=== PATIENT | female | born 1965 | race Caucasian/White ===

== ENCOUNTER → 2019-06-23 | Outpatient (REF) | payer BC | LOC: M SFHCLERA 19:32 | PROVIDERS: ATTEND Nurse Practitioner Family | DX: J02.9 Acute pharyngitis, unspecified (principal) ==

== ENCOUNTER → 2021-07-07 | Outpatient (CLI) | payer BC ==
[~2021-07-07] MED LIST: CEPH500C PO; D31000TA2 PO; ESTR62CR PV; FLAX1CAP5 PO; LEVO25TA5 PO; QC F0.52 PO; RA T500C2 PO; VITA-243 PO; ZINC1TAB2 PO
== END ==
LOC: M LABSMTC 10:56
PROVIDERS: ATTEND Anesthesiology
DX: Z01.818 Encounter for other preprocedural examination (principal); Z11.52 Encounter for screening for COVID-19

== ENCOUNTER 2021-07-12 06:12 | Day surgery (SDC) | payer BC ==
[~2021-07-12] VITALS: Ht 149.9 cm; Wt 77.1 kg
[~2021-07-12 06:12] MED LIST changes: +LIDOCAINE 1% MDV 20ML VIAL SQ PRN; +LR 1,000 ML IV ONE; +ceFAZolin SOD 2 GM in IV 1 EA IV ONE
[2021-07-12] MEDS ORDERED: GENTAMICIN SULF 80MG/2ML VIAL As Ordered ONE (07:19)
[2021-07-12] MEDS ORDERED: BUPIVACAINE LIPOSOME/PF 1.3% 20ML VIAL (13.3MG/ML)(EXPAREL)(C9290 PER1MG) As Ordered ONE (07:19)
[2021-07-12] MEDS ORDERED: fentaNYL 250 MCG/5 ML INJECTION (J3010) As Ordered ONE (07:27)
[2021-07-12] MEDS ORDERED: ROCURONIUM BROMIDE 50 MG/5 ML VIAL As Ordered ONE ×2 (07:27→08:59)
[2021-07-12] MEDS ORDERED: dexameTHASONE 4 MG/ML 1ML VIAL (J1100 PER 1MG) As Ordered ONE (07:27)
[2021-07-12] MEDS ORDERED: LIDOCAINE 2% 100MG/5ML SDV (FOR ANES.) As Ordered ONE (07:27)
[2021-07-12] MEDS ORDERED: MIDAZOLAM INJ 2MG/2ML VIAL (J2250 PER 1MG) As Ordered ONE (07:27)
[2021-07-12] MEDS ORDERED: propofoL 200 MG/20 ML VIAL As Ordered ONE (07:27)
[2021-07-12] MEDS ORDERED: SCOPOLAMINE 1MG TRANSDERMAL PATCH TOP ONE (07:30)
[2021-07-12] MEDS ORDERED: LIDOCAINE 1% MDV 20ML VIAL As Ordered ONE (07:34)
[2021-07-12] MEDS ORDERED: EPINEPHrine INJ 1 MG/ML 1ML AMP As Ordered ONE (07:34)
[2021-07-12] MEDS ORDERED: GLYCOPYRROLATE INJ 0.2 MG/ML 2 ML VIAL As Ordered ONE (08:22)
[2021-07-12] MEDS ORDERED: HEPARIN SOD (PORCINE) 5000UNITS/ML 1ML VIAL/SYRINGE As Ordered ONE (08:27)
[2021-07-12] MEDS ORDERED: ePHEDrine SULFATE 25 MG/5 ML(5MG/ML) SYRINGE As Ordered ONE (08:42)
[2021-07-12] MEDS ORDERED: HYDROmorphone HCL 2 MG/ML 1ML VIAL As Ordered ONE (09:05)
[2021-07-12] MEDS ORDERED: SUGAMMADEX SODIUM 500 MG/5 ML VIAL (BRIDION) As Ordered ONE (09:17)
[2021-07-12] MEDS ORDERED: ACETAMINOPHEN 1000MG 100ML IV BTL (OFIRMEV) (J0131 PER 10MG) As Ordered ONE (09:17)
[2021-07-12] MEDS ORDERED: SEVOFLURANE INHAL SOLN 250 ML BTL As Ordered ONE (09:34)
--- NOTE | 2021-07-12 11:45 | POST-OPPD ---
Postoperative Procedure Note Date Of Procedure: Jul 12, 2021 PREOPERATIVE DIAGNOSIS: Bilateral breast ptosis. Symptomatic lower abdominal scar POSTOPERATIVE DIAGNOSIS: same PROCEDURE: Bilateral mastopexy. Revision of lower abdominal scar. SURGEON: Dr Owens ANESTHESIA: General ESTIMATED BLOOD LOSS: 75 cc FINDINGS: Symptomatic wide scar with asymmetry SPECIMENS: Scar. 32 cx 6 cm, Right and left breast tissue. Liposuction fluid 600 cc. COMPLICATIONS: none REPLACED: none DRAINS: none POSTOPERATIVE CONDITION: stable SABINO OWENS DO Jul 12, 2021 11:45
--- NOTE | 2021-07-12 11:46 | ROOPDOC ---
[facility] Report Of Operation Report of Operation DATE OF PROCEDURE: 07/12/21 PREOPERATIVE DIAGNOSIS: Bilateral breast ptosis. Symptomatic lower abdominal scar POSTOPERATIVE DIAGNOSIS: same PROCEDURE: Bilateral mastopexy. Revision of lower abdominal scar. SURGEON: Dr Owens ANESTHESIA: General ESTIMATED BLOOD LOSS: 75 cc FINDINGS: Symptomatic wide scar with asymmetry SPECIMENS: Scar. 32 cx 6 cm, Right and left breast tissue. Liposuction fluid 600 cc. COMPLICATIONS: none REPLACED: none DRAINS: none POSTOPERATIVE CONDITION: stable DESCRIPTION OF PROCEDURE: DESCRIPTION OF PROCEDURE: This is a 56-year-old female who presents to our office complaining of loss of the volume of the upper pole of the breast and significant ptosis. Her measurements are from sternal notch to the nipple areolar complex 29 cm bilaterally. Her inframammary fold (IMF) is at 22 cm. Patient wishes to have a breast lift. She also has a wide, thin breast with a lot of laxity in her tissues. Bilateral Mastopexy is the appropriate choice of procedure. Risks, benefits, and alternatives were discussed with the patient in detail, and she is ready to proceed. Patient also has a old scar from previous abdominoplasty that she underwent years ago which was also followed by different operation and. Now that the scar is painful and symmetric. She would like to have it revised as well. Risk, benefits, and alternatives of the procedure for the scar revision were discussed with patient in details as well. The day of surgery, she was marked in the upright position. Preoperative antibiotics given. Informed consent obtained. She was brought into the operating room and placed in supine position. General anesthesia was induced. She was prepped and draped in the usual sterile fashion. We started our procedure with the scar revision portion. The area was outlined previously in upright position. The length of the scar is 32 centimeters in length and 6 cm in width. We used 10 blade scalpel to completely excise the sc ar hemostasis was obtained using electrocautery. We identified the areas of a contraction deeply in the subcutaneous tissue which was also attributed to the scar and there were removed. The area was irrigated with gentamicin irrigation. With reapproximated the scar with deep sutures of 0 Vicryl interrupted fashion. Followed closure was done with interrupted 3-0 Monocryl sutures followed by 3-0 Monocryl V-Loc suture. Good symmetry was achieved. Then will turned our attention to the second part of the procedure which is mastopexy. We started our procedure on the right side. Nipple areolar complex was outlined at 42 mm in diameter. Then a lollypop incision was designed, and incision was carried out, tissue was scored, and then dissection was done using el ectrocautery and PEAK cautery, along the central pedicle lift. This was how we designed our mastopexy. We undermined superiorly until the pocket was large enough to be able to bring the tissue superiorly, and then the lateral pillars were also freed up, and the central pedicle was identified with good perfusion to the nipple at all times. The skin was de-epithelialized, and the whole breast moved superiorly to its new location at 22 cm from the sternal notch. Pillars were then closed with 3-0 Monocryl sutures, and 0 Vicryl conforming sutures were used to support the breast. Excess tissue inferiorly was measured and resected, vertical limb is 7 cm. Nipple areolar complex sutured in with 3-0 and 4-0 Monocryl and a 5-0 plain gut running stitch. Then the left breast was done in a similar fashion. The 42 mm diameter nipple areolar complex was marked using a Oz Sonotek cutter, and an incision was carried out along the lollypop incision that was designed, and then a pocket was created superiorly and then central pedicle was freed up from the lateral pillars and then de-epithialized. Hemostasis obtained, and then the whole breast was moved superiorly to its new location. Exparel was infiltrated into the pectoralis muscle on both sides, 20 mL total, and then the left side pillars were closed with interrupted 3-0 Monocryl sutures. Excess tissue was measured inferiorly and resected, vertical limb is 7 cm. The horizontal scar was also closed with 3-0 Monocryl sutures. Nipple areolar complex was brought into view. Sutures were 3-0 and 4-0 Monocryl sutures and running stitch of 5-0 plain gut suture. Steri-Strips dressing applied to horizontal and vertical scar as well as lower abdominal scar. Xeroform on the nipple areolar incision applied. Surgical support bra, and patient was extubated in the operating room without any difficulty and transferred to the recovery room in stable condition. . SABINO OWENS DO Jul 12, 2021 11:46
[2021-07-12] MEDS ORDERED: TRAM50TA2 PO (11:55)
[2021-07-12] MEDS ORDERED: ONDANSETRON 4MG/2ML VIAL IV PRN (12:20)
[2021-07-12] MEDS ORDERED: fentaNYL 100 MCG/2 ML INJECTION (J3010) IV PRN (12:20)
[2021-07-12] MEDS ORDERED: LR 1,000 ML IV SCH (12:20)
[2021-07-12] MEDS ORDERED: traMADol 50 MG TAB PO PRN (12:25)
[2021-07-12 13:50] VITALS: BP 133/68
== END 2021-07-12 13:50 | disposition home or self-care (01) ==
LOC: M SDC 06:12
PROVIDERS: ATTEND Plastic Surgery Surgery of the Hand
DX: N64.81 Ptosis of breast (principal); L90.5 Scar conditions and fibrosis of skin; E03.9 Hypothyroidism, unspecified; Z79.899 Other long term (current) drug therapy; Z88.5 Allergy status to narcotic agent; Z91.013 Allergy to seafood
CPT/HCPCS: 13101; 13102; 19316; 88300; 88302; 88305; C9290; J0131; J0171; J0690; J1100; J1170; J1580; J1644; J2250; J3010

== ENCOUNTER → 2023-02-12 | Outpatient (CLI) | payer OTHER ==
[~2023-02-12] MED LIST changes: -D31000TA2 PO; -LIDOCAINE 1% MDV 20ML VIAL SQ PRN; -LR 1,000 ML IV ONE; +TRAM50TA2 PO; +VITA100093 PO; -ceFAZolin SOD 2 GM in IV 1 EA IV ONE
== END ==
LOC: M WHC 15:00
PROVIDERS: ATTEND Physician Assistant Surgical
DX: S76.211A Strain of adductor muscle, fascia and tendon of right thigh, initial encounter (principal); M79.604 Pain in right leg